=== PATIENT | female | born 1980 | race Caucasian/White ===

== ENCOUNTER → 2016-06-16 | Outpatient (REF) | payer OTHER ==
[~2016-06-16] MED LIST: ALBU17IN2 INH; GEOD20CA14 PO; NEXI20CA PO; PERC5TAB6 PO; VITA1TAB27 PO; VITAPRTA PO
== END | disposition home or self-care (01) ==
LOC: M SFHCLERA 09:37
PROVIDERS: ATTEND Nurse Practitioner Family
DX: R50.9 Fever, unspecified (principal)

== ENCOUNTER → 2016-07-18 | Outpatient (CLI) | payer OTHER ==
--- NOTE | 2016-07-18 16:11 | REP ---
Chest two views HISTORY: Cough Comparison: None The lungs are clear. The heart is normal in size. The pulmonary vasculature is normal in appearance. The bony structure is intact. IMPRESSION: No acute disease. Signed by Aston Sandoval MD 07/18/2016 04:02 P
== END ==
LOC: M SMT 15:00
PROVIDERS: ATTEND Physician Assistant
DX: R05 Cough (principal)

== ENCOUNTER 2016-07-26 13:50 | Inpatient (IN) | payer OTHER ==
[~2016-07-26] VITALS: Ht 170.2 cm; Wt 85.9 kg
[2016-07-26 15:45] LABS: CONTROL LINE HCG INT CTR LINE PRESENT
[2016-07-26 15:51] LABS: MEAN CORPUSCULAR HEMOGLOBIN 29.7 pg (27.0-33.0); MEAN CORPUSCULAR HGB CONC 32.8 g/dl (32.0-36.5); MEAN CORPUSCULAR VOLUME 90.5 fl (80.0-96.0); RED CELL DISTRIBUTION WIDTH 12.5 % (11.5-14.5); WHITE BLOOD COUNT 9.3 K/mm3 (4.0-10.0)
[2016-07-26 15:54] LABS: METHADONE URINE NEGATIVE (NEGATIVE)
[2016-07-26 16:01] LABS: ALBUMIN 3.9 GM/DL (3.2-5.2); ALBUMIN/GLOBULIN RATIO 1.11 (1.00-1.93); ALKALINE PHOSPHATASE 86 U/L (45-117); ALT/SGPT 23 U/L (12-78); ANION GAP 4 MEQ/L (8-16); AST/SGOT 16 U/L (15-37); BILIRUBIN,DIRECT < 0.1 MG/DL (0.0-0.2); BILIRUBIN,TOTAL 0.3 MG/DL (0.2-1.0); BLOOD UREA NITROGEN 9 MG/DL (7-18); CALCIUM LEVEL 9.2 MG/DL (8.5-10.1); CARBON DIOXIDE LEVEL 31 MEQ/L (21-32); CHLORIDE LEVEL 106 MEQ/L (98-107); CREATININE FOR GFR 0.71 MG/DL (0.55-1.02); GLOMERULAR FILTRATION RATE > 60.0 (>60); GLUCOSE, FASTING 95 MG/DL (70-105); POTASSIUM SERUM 4.7 MEQ/L (3.5-5.1); SODIUM LEVEL 141 MEQ/L (136-145); TOTAL PROTEIN 7.4 GM/DL (6.4-8.2)
[2016-07-26 20:26] VITALS: BP 128/79
[2016-07-26] MEDS ORDERED: ACETAMINOPHEN TAB 650MG DOSE (2X325MG) PO PRN (22:00)
[2016-07-26] MEDS ORDERED: MOM 30ML SUSPENSION UDC PO PRN (22:00)
[2016-07-26] MEDS ORDERED: ALBUTEROL 90 MCG/ACT 8GM HFA INHALER INH PRN (22:00)
[2016-07-26] MEDS ORDERED: MAALOX 30 ML SUSP *UDC PO PRN (22:00)
[2016-07-26] MEDS ORDERED: traZODone 50 MG TAB PO PRN (22:00)
[2016-07-27 06:19] VITALS: BP 124/82
--- NOTE | 2016-07-27 10:34 | HPE ---
DATE OF ADMISSION: 07/26/2016 Mis Malik is a white female, 36 years old, whose is in the . He is in his third year in the . She states "my medications are off." She has been having suicidal thoughts. She was recommended to come here for "72 hour hold." She is here voluntarily. She is here to be monitored. 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 She states Jefry Peng at the [facility] suggested she come here. She states she is prescribed medication by Dr. Parra in [place] and last saw him in October. She has been on Geodon and did well for 7 years with the same dose of 20 mg. She states she is extremely drug sensitive. She states she has been treated for bipolar illness. She states in the past she has had symptoms of panic episodes and was diagnosed with jess since 14 years old. She has also had depressive episodes, the last one being 2008. MEDICAL HISTORY: Her medical history is negative. SURGICAL HISTORY: Her surgical history is positive for a hysterectomy and section and breast augmentation. PSYCHIATRIC STATUS: She states she has had suicidal thoughts for the last week of wanting to "end her life." She did not admit to a suicidal plan, but record shows that she had planned to crash her car. She states two nights ago these thoughts disappeared. She states "my thought I should come in." MARITAL HISTORY: She has been for 10 years. She has two children. NEUROLOGICAL HISTORY: Negative. LEGAL HISTORY: Negative. DRUG HISTORY: Negative. ALCOHOL HISTORY: Negative. The patient states she sleeps well and her appetite is good. MENTAL STATUS EXAMINATION: The patient has good eye contact. Speech is mildly higher volume. No articular process. Thought process is only mildly rapid. No loose associations. No psychotic thoughts. The patient has been thinking about suicide. Judgment and insight are fair. Orientation in three spheres. Recent and remote memory are intact. Attention and concentration intact. No disturbances of language. Fund of knowledge is full. Mood seems slightly elevated. Affect is bright. IMPRESSION: Depression versus dysphoric jess. I have increased Geodon to 40 mg. Further information may be needed from to get a clear idea of this patient's behavior and mental state.
--- NOTE | 2016-07-27 10:46 | HPEPDOC ---
Medical History and Physical Date of Admission Jul 26, 2016 at 17:07 History and Physical PCP: Dr Gutierrez Read ATTENDING: Dr. Rizwan Salcido HPI: 36yoF admitted to [facility] for unspecified depressive disorder, being medically examined today. No acute medical complaints today. Denies any fevers, chills, weakness, fatigue, MACIAS, CP, SOB, cough, palpitations, abdominal pain, N/V /D or changes in bowel or bladder habits. PMHx: Asthma Depression Bipolar disorder PSHX: Hysterectomy Breast augmentation 2007 2006 SOCHX: Resides in: [place] Marital Status: Kids: 2 Employment: Full-time [employer] Tobacco use: 3 cigarettes per day ETOH: Denies Illicit Drugs: Denies IV Drug Use: Denies Tattoos done unprofessionally: Denies FAMHX: Mother: Alive, well Father: , brain tumor Siblings: 2 brothers Alive, bipolar disorder Children: Alive, autism Unexpected deaths due to medical reasons: None. ROS: As noted in HPI, otherwise 11pt ROS of systems reviewed and remarkable only for LMP NA hysterectomy. PE: GEN: 36 yo F, appears stated age. Well-nourished, well developed. No acute distress. Alert and oriented x 3. Pleasant, interactive. HEENT: Normocephalic, atraumatic. Pupils are equal, round, and reactive to light. Extraocular movements are intact. No nystagmus appreciated. Sclera are nonicteric. Conjunctiva without injection. Nose midline. Nasal turbinates without bogginess. EACs both patent BL. TMs both visualized and carrillo with good cone of light, no bulging or erythema. No facial asymmetry. Moist mucous membranes. Dentition fair. Pharynx pink and moist, no cobblestoning. Neck supple , trachea midline. No lymphadenopathy or thyromegaly appreciated. CHEST: Regular rate and rhythm, +S1, +S2 LUNGS: Clear to auscultation bilaterally. No wheezes, rales, or rhonchi. Breathing appears symmetric and easy. Patient is speaking in full sentences. No accessory muscle use. ABD: Round, soft, non-tender, non-distended. +Bowel sounds throughout. No rebound or guarding. No costovertebral angle tenderness. EXT: Pulses 2+ bilaterally dorsalis pedis and radial. No lower extremity edema appreciated. SKIN: [place], dry, warm. Capillary refill <2sec. No rashes. NEURO: Alert and oriented x 3. Cranial nerves III-XII are intact. No focal deficits appreciated. EKG: Pending. A&P: 36yoF admitted to [facility] for unspecified depressive disorder 1. Psych. Plan per Psychiatry. Obtain baseline EKG to assure the safety of psychiatric medications as they can prolong the QT interval. 2. Nicotine dependence. Patch available. 3. Asthma. Albuterol HFA 2 puffs every 4 hours as needed. 4. Follow up with PCP on discharge. 5. Abnormal TSH. Thyroid profile in a.m. 6. Chrissy WICK present throughout exam. Vital Signs Vital Signs Label Value Date Time Patient Temperature 99.2 degrees F 07/27/16618 Temperature Source Temporal 07/27/16618 Pulse 72 07/27/16618 Respiratory Rate 18 bpm 07/27/16618 Blood Pressure Assessment 124/82 (96) 07/27/16618 Laboratory Data Labs 24H Laboratory Tests 2 07/26/16 15:11: Acetaminophen Level < 2.0L, Aspartate Amino Transf (AST/SGOT) 16, Alanine Aminotransferase (ALT/SGPT) 23, Alkaline Phosphatase 86, Total Bilirubin 0.3, Direct Bilirubin < 0.1, Albumin 3.9, Albumin/Globulin Ratio 1.11, Anion Gap 4L, Calcium Level 9.2, Ethyl Alcohol Level 0.005, Glomerular Filtration Rate > 60.0 , Human Chorionic Gonadotropin, Qual NEGATIVE, Salicylates Level < 1.7L, Thyroid Stimulating Hormone (TSH) 0.238L, Total Protein 7.4, Urine Amphetamines Screen NEGATIVE, Urine Benzodiazepines Screen NEGATIVE, Urine Opiates Screen NEGATIVE, Urine Barbiturates Screen NEGATIVE, Urine Cannabinoids Screen NEGATIVE , Urine Cocaine Metabolite Screen NEGATIVE, Urine Methadone Screen NEGATIVE, Urine Phencyclidine Screen NEGATIVE CBC/BMP Laboratory Tests 07/26/16 15:11 Red Blood Count 4.88, Mean Corpuscular Volume 90.5, Mean Corpuscular Hemoglobin 29.7, Mean Corpuscular Hemoglobin Concent 32.8, Red Cell Distribution Width 12.5 Home Medications Scheduled Ziprasidone Hydrochloride (Geodon) 20 Mg Cap 20 MG PO QHS Scheduled PRN Albuterol Sulfate (Proventil Hfa) 167 Puff/6.7 Gm Aers 2 PUFFS INH QID PRN PRN SHORTNESS OF BREATH Allergies Coded Allergies: [place] (Unverified Allergy, Unknown, 08/01/15) Sertraline (Unverified Allergy, Unknown, 08/01/15) Tomato (Unverified Allergy, Unknown, 07/26/16) Fiona Del Castillo Jul 27, 2016 10:46
[2016-07-27 12:05] LABS: THYROXINE (T4) 8.3 UG/DL (4.5-12.0)
[2016-07-27 13:14] VITALS: BP 114/68
[2016-07-27 18:00] VITALS: BP 128/75
[2016-07-27] MEDS ORDERED: ZIPRASIDONE 20MG CAPSULE (GEODON) PO SCH (21:00)
[2016-07-27] MEDS: ZIPRASIDONE 20MG CAPSULE (GEODON) PO SCH (21:38)
[2016-07-27 21:39] VITALS: BP 119/72
--- NOTE | 2016-07-27 22:25 | ECGEPIP ---
Stationary ECG Study [facility] Test Date: 2016-07-27 Pat Name: SHAYY WOLFE Department: Room: [place] [address] Gender: F Motel Keeper: RENAE : 1980 Requested By: Fiona Del Castillo Order Number: [id number] Reading MD: Janak Sena Measurements Intervals [place] Rate: 59 P: 68 NV: 162 QRS: 49 QRSD: 95 T: 42 QT: 391 QTc: 389 Interpretive Statements Sinus bradycardia Nonspecific T wave abnormality, V2 Comparison tracing not on file Electronically Signed On 07-27-2016 22:25:11 EDT by Janak Sena
[2016-07-28 06:23] VITALS: BP 150/80
--- NOTE | 2016-07-28 16:57 | IPN ---
DATE: 07/28/2016 SUBJECTIVE: Day three of inpatient hospitalization. Mis is a 36-year-old -[place] woman who was admitted after she presented to the emergency room at the recommendation of her therapist. Reportedly, she informed her therapist that she was feeling suicidal. She currently is being prescribed Geodon 40 mg orally daily. She reports today that "I feel a lot better and I'm sleeping good. The Geodon is helping and I feel my mood is getting better." No reported medication-related side effects. OBSERVATION: She is alert and adequately oriented, well groomed, and appropriately dressed in [facility]. Her speech is fluent and prosodic. Thought process is coherent and goal directed. No evidence of delusions or hallucinations. She describes her mood as improving. Affect is appropriate. She denies suicidal or homicidal thoughts, plan or intent. Her vital signs are stable. ASSESSMENT: The patient is tolerating current dose of Geodon, and no medication-related adverse events. However, she will require further inpatient stay for treatment stability. PLAN: Geodon will be continued with ongoing reviews and supportive therapy. PAVEL
[2016-07-28 18:00] VITALS: BP 132/85
[2016-07-28] MEDS: ZIPRASIDONE 20MG CAPSULE (GEODON) PO SCH (21:43)
[2016-07-28 21:44] VITALS: BP 142/84
[2016-07-29 06:31] VITALS: BP 126/75
[2016-07-29 18:00] VITALS: BP 117/58
--- NOTE | 2016-07-29 20:35 | IPN ---
DATE: 07/29/2016 SUBJECTIVE: This is the fourth day of inpatient hospitalization for this 36-year-old -[place] woman who was admitted after she presented at the recommendation of her therapist with suicidal ideation. She currently is on Geodon 40 mg orally daily and is also provided with therapeutic programs, including group and activities. She reports today that "I slept really good through the night. My mood is okay." She says that she spoke to her children and was quite happy about it. She is looking forward to being discharged so she can stay with her children. No major incidents involving the patient in the past 24 hours. OBSERVATION: Her vital signs are stable. She is calm and cooperative. She is appropriately dressed and groomed. Her mood is not notably depressed and not elated. No overt psychotic features evident. She denies suicidal thoughts, plan or intent, as well as homicidal ideation. ASSESSMENT: She continues to show treatment improvements and presently does not appear to be a danger to self or to others. PLAN: She will be continued on the current treatment and will be reassessed in the next 24 hours. If she is stable, she will be scheduled for discharge with appropriate followup plan. PAVEL
[2016-07-29] MEDS: ZIPRASIDONE 20MG CAPSULE (GEODON) PO SCH (21:40)
[2016-07-30 06:42] VITALS: BP 140/87
[2016-07-30] MEDS ORDERED: GEOD20CA14 PO (07:22)
--- NOTE | 2016-07-30 17:01 | MHDS ---
DATE OF ADMISSION: 07/26/2016 DATE OF DISCHARGE: 07/30/2016 She is a , white female, 36 years old, whose is in the . He is in his third year in the . She states "my medications are off." She has been having suicidal thoughts. She was recommended to come here for "72-hour hold." She is here voluntarily and to be monitored. She has school tomorrow, stated she could not miss Somali and math. She states she has treated at the [facility] and they had suggested she come here. She is prescribed medication by Dr. Parra in [place] and last saw him in October. She has been on Geodon 20 mg for the last 7 years. She states it does extremely well but she is extremely drug sensitive. She has been treated for bipolar illness. In the past she has had symptoms of manic episodes and was diagnosed with jess since 14 years old. She also has had depressive episodes. MEDICAL HISTORY: Negative. SURGICAL HISTORY: Her surgical history is positive for a hysterectomy and section and breast augmentation. PSYCHIATRIC STATUS: She states she has had suicidal thoughts for the last week and wanting to end her life. However, she did not admit to a suicidal plan, but records show that she had planned to crash her car. She states two nights ago these thoughts have disappeared. MARITAL HISTORY: She has been for 10 years with two children. NEUROLOGICAL HISTORY: Negative. LEGAL HISTORY: Negative. DRUG HISTORY: Negative. ALCOHOL HISTORY: Negative. COURSE ON THE UNIT: The patient was seen by Fiona Del Castillo and was diagnosed with nicotine dependence, history of asthma, and it was recommended that she have a thyroid profile. Her CBC was within normal range. Her chemistries showed a low TSH. Free T4, T4 and T3 uptake were within normal range. Her toxicology screen was negative. She was seen throughout the weekend by Dr. Underwood, he felt that she was tolerating her current dose of Geodon which I had raised to 40 mg. She had no medication adverse events. She reported she was feeling a lot better and was sleeping well. She stated the Geodon was helping and that her mood was improving. On Saturday, she was calm and cooperative, reported she slept well, and her mood was good. She was looking forward to being discharged. PRESENT MEDICATIONS: Include: - Geodon 40 mg nightly DISCHARGE MENTAL STATUS: No disturbance of speech. No thought disorders. No loose associations. No abnormal or psychotic thoughts. Judgment and insight were good. Orientation was full in three spheres. Recent and memory were intact. No disturbances of attention and concentration. No disturbances of language. Fund of knowledge was full. Mood was good. Affect was bright. DISCHARGE DIAGNOSES: Bipolar disorder, depression. Discharge planning had a meeting with [id number] who felt the patient was doing well. Patient stated that she was stressed by school, the passing of a relative, and her being deployed. Patient plans to go to [place] to be with family. [facility].
== END 2016-07-30 12:15 | disposition home or self-care (01) | DRG 885 ==
LOC: M ED 15:32 → M ED INP 17:07 → M PSY 20:24
PROVIDERS: ADMIT Psychiatry & Neurology Psychiatry; ATTEND Psychiatry & Neurology Child & Adolescent Psychiatry
DX: F31.9 Bipolar disorder, unspecified (principal); J45.909 Unspecified asthma, uncomplicated; F17.210 Nicotine dependence, cigarettes, uncomplicated; Z81.8 Family history of other mental and behavioral disorders; Z63.4 Disappearance and death of family member

== ENCOUNTER → 2016-12-19 | Outpatient (REF) | payer OTHER ==
[~2016-12-19] MED LIST changes: +PERC5TAB12 PO; -PERC5TAB6 PO
== END ==
LOC: M LAB REF 16:57
PROVIDERS: ATTEND Family Medicine
DX: N39.0 Urinary tract infection, site not specified (principal)

== ENCOUNTER → 2017-02-19 | Outpatient (REF) | payer OTHER | LOC: M LAB REF 18:47 | PROVIDERS: ATTEND Family Medicine | DX: Z01.419 Encounter for gynecological examination (general) (routine) without abnormal findings (principal); Z11.3 Encounter for screening for infections with a predominantly sexual mode of transmission; Z11.51 Encounter for screening for human papillomavirus (HPV) | CPT/HCPCS: 87491; 87591; G0123 ==

== ENCOUNTER → 2017-05-15 | Outpatient (CLI) | payer OTHER | LOC: M SMT PRO 08:58 | DX: M79.642 Pain in left hand (principal) | CPT/HCPCS: 73130 ==

== ENCOUNTER → 2017-06-27 | Outpatient (CLI) | payer OTHER, SELFPAY ==
[2017-06-27 18:32] LABS: BASO # 0.1 10^3/uL (0.0-0.2); BASO % 0.6 % (0.0-1.0); EOS # 0.3 10^3/uL (0.0-0.50); EOS % 3.5 % (0.0-3.0); HEMATOCRIT 42.2 % (36.0-47.0); HEMOGLOBIN 14.1 g/dl (12.0-16.0); IMMATURE GRANULOCYTE % 0.8 % (0-3.0); LYMPH # 2.1 10^3/uL (1.5-4.5); LYMPH % 23.7 % (24.0-44.0); MEAN CORPUSCULAR HEMOGLOBIN 29.9 pg (27.0-33.0); MEAN CORPUSCULAR HGB CONC 33.4 g/dl (32.0-36.5); MEAN CORPUSCULAR VOLUME 89.4 fl (80.0-96.0); MONO # 0.6 10^3/uL (0.0-0.8); MONO % 7.2 % (0.0-5.0); NEUTROPHILS # 5.6 10^3/uL (1.8-7.7); NEUTROPHILS % 64.2 % (36.0-66.0); PLATELET COUNT, AUTOMATED 339 10^3/uL (150-450); RED BLOOD COUNT 4.72 10^6/uL (4.00-5.40); RED CELL DISTRIBUTION WIDTH 12.3 % (11.5-14.5); WHITE BLOOD COUNT 8.7 10^3/uL (4.0-10.0)
[2017-06-27 18:49] LABS: ALBUMIN 4.1 GM/DL (3.2-5.2); ALBUMIN/GLOBULIN RATIO 1.24 (1.00-1.93); ALKALINE PHOSPHATASE 104 U/L (45-117); ALT/SGPT 18 U/L (12-78); ANION GAP 8 MEQ/L (8-16); AST/SGOT 12 U/L (7-37); BILIRUBIN,TOTAL 0.2 MG/DL (0.2-1.0); BLOOD UREA NITROGEN 9 MG/DL (7-18); CALCIUM LEVEL 8.6 MG/DL (8.5-10.1); CARBON DIOXIDE LEVEL 28 MEQ/L (21-32); CHLORIDE LEVEL 105 MEQ/L (98-107); CREATININE FOR GFR 0.67 MG/DL (0.55-1.30); GLOMERULAR FILTRATION RATE > 60.0 (>60); GLUCOSE, FASTING 85 MG/DL (70-100); POTASSIUM SERUM 4.1 MEQ/L (3.5-5.1); SODIUM LEVEL 141 MEQ/L (136-145); TOTAL PROTEIN 7.4 GM/DL (6.4-8.2)
[2017-06-28 07:29] LABS: CONTROL LINE MONO INT CTR LINE PRESENT; MONO SCRN NEGATIVE (NEGATIVE)
== END ==
LOC: M SMT 15:07
DX: R53.81 Other malaise (principal)
CPT/HCPCS: 80053

== ENCOUNTER → 2017-06-27 | Outpatient (REF) | payer OTHER | LOC: M LAB REF 16:53 | DX: R53.81 Other malaise (principal) | CPT/HCPCS: 87633 ==